=== PATIENT | male | born 1945 | race Caucasian/White ===

== ENCOUNTER 2019-12-24 19:35 | Inpatient (IN) | payer OTHER ==
[~2019-12-24] VITALS: Ht 167.6 cm; Wt 78.9 kg
--- NOTE | 2019-12-24 19:50 | NUR ---
TELE/RN NEW ADMISSION NOTES RECEIVED PATIENT DIRECT ADMIT FROM [facility], ON A GURNEY ACCOMPANIED BY 2 EMT, PATIENT IS AN ELDERLY SPANISH MALE WHO IS ALERT, ORIENTED X3, ABLE TO AMBULATE WITH SUPERVISION, DENIES PAIN ALTHOUGH HE HAD SOME PRESSURE FELT MINIMAL NOW REPORTED AT 06/07. PATIENT PREFERS TO SPEAK IN TAGALOG WITH INVOLVED FAMILY, ATTENDING MD IS CHERISE DAO. HOME MEDICATIONS REPORTED AND RECONCILED, BELONGINGS CHECK, ROOM ORIENTATION PROVIDED, WILL MONITOR, ON TELE SR WITH IST DEGREE BLOCK, TROPONIN LEVEL PENDING. MD DAO DX WITH ACUTE HYPOXIC RESPIRATORY FAILURE AND CHF EXACERBATION, ON ROOM AIR. BED LOCKED, CALL LIGHTS WITHIN REACH. WILL MONITOR.IV SITE ON LEFT AC.
[2019-12-24 20:00] VITALS: BP 140/78
[2019-12-24 20:21] VITALS: BP 140/87
[2019-12-24] MEDS ORDERED: ALBUTEROL 17GM INHALER IH PRN (20:30)
--- NOTE | 2019-12-24 20:33 | NUR ---
REPORTED TROPONIN LEVEL TO LESSON INSTRUCTOR MD CHERISE DAO WITH TROPONIN LEVEL OF 0.742 PER MD TO TREND.
[2019-12-24] MEDS ORDERED: ONDANSETRON HCL/PF 4 MG/2 ML VIAL IVP PRN (21:00)
[2019-12-24] MEDS ORDERED: ACETAMINOPHEN 325 MG TABLET PO PRN (21:00)
[2019-12-24] MEDS ORDERED: Z GUARD REMEDY 2 OZ OINT TP PRN (21:00)
[2019-12-24] MEDS ORDERED: FUROSEMIDE 20 MG/2 ML VIAL IV SCH (21:00)
[2019-12-24] MEDS ORDERED: HYDROCODONE/APAP 5/325MG 1 EACH TABLET PO PRN (21:00)
[2019-12-24] MEDS ORDERED: MORPHINE SULFATE INJ 2 MG/ML DISP.SYRIN IV PRN (21:00)
[2019-12-24] MEDS ORDERED: CEFTRIAXONE 1 G VIAL IM SCH (21:00)
[2019-12-24] MEDS ORDERED: MAGNESIUM HYDROXIDE 30 ML UDC PO PRN (21:00)
[2019-12-24] MEDS ORDERED: MAG HYDROX/AL HYDROX/SIMETH 30 ML UDC PO PRN (21:00)
[2019-12-24] MEDS ORDERED: ZOLPIDEM TARTRATE 5 MG TABLET PO PRN (21:00)
[2019-12-24] MEDS: CALCIUM CARBONATE 500 MG TAB.CHEW PO SCH (22:55)
[2019-12-24] MEDS: ATORVASTATIN 40 MG TABLET PO SCH (22:55)
[2019-12-24] MEDS: MONTELUKAST SODIUM (10MG) 10 MG TABLET PO SCH (22:55)
[2019-12-25] VITALS: BP 140/98
--- NOTE | 2019-12-25 02:39 | NUR ---
RECEIVED TROPONIN LEVEL LATEST FROM LAB JOHAN WITH RESULT OF 0.627
--- NOTE | 2019-12-25 06:22 | NUR ---
304-1 TELE/RN NOTES PATIENT ABLE TO SLEEP DURING THE NIGHT, ATTENDED ALL NEEDS, MONITORED INTAKE OF FLUIDS, ON OXYGEN VIA NC AT 2 LITER. SAFETY MEASURES PLACED, BED LOCKED, CALL LIGHTS WITHIN REACH, BED ALARM ON AND MONITORED. PATIENT ALERT, ORIENTED AND ABLE TO VERBALIZED NEEDS IN TAGALOG. JESSICA WILL ENDORSE TO AM RN FOR LARISSA. TELE MONITOR READING AT SINUS RHYTM. WILL ENDORSE TO AM RN FOR LARISSA.
[2019-12-25 06:31] LABS: BASOPHILS % (AUTO) 0.2 % (0.0-2.0); HEMATOCRIT 48 % (39-51); HEMOGLOBIN 15.9 g/dL (13.5-17.5); MEAN CORPUSCULAR HGB CONC 33 g/dl (31.0-36.0); MEAN CORPUSCULAR VOLUME 95 fL (80-96); MONOCYTES # (AUTO) 1.2 /CMM (0.1-1.30); NEUTROPHILS # (AUTO) 7.6 /CMM (1.8-8.9); NEUTROPHILS % (AUTO) 77.8 % (43.0-81.0); PLATELET COUNT (AUTO) 160 /CMM (150-450); RED BLOOD CELL COUNT(AUTO) 5.07 MIL/uL (4.5-6.0); WHITE BLOOD COUNT (AUTO) 9.8 K/uL (4.3-11.0)
[2019-12-25 06:44] LABS: ALBUMIN 3.7 g/dL (3.4-5.0); BILIRUBIN,TOTAL 0.7 mg/dL (0.2-1.0); CALCIUM, SERUM 9.2 mg/dL (8.5-10.1); MAGNESIUM 2.1 mg/dL (1.8-2.4); PHOSPHORUS 3.4 mg/dL (2.5-4.9); POTASSIUM 3.9 mmol/L (3.5-5.1); TOTAL PROTEIN, SERUM 7.6 g/dL (6.4-8.2)
--- NOTE | 2019-12-25 07:30 | NUR ---
Tele/RN - Assessment Patient is A/O x 4, states breathing better, currently on oxygen at 2lpm via NC, SpO2 95%, denies chest pain, no apparent distress, tele shows NSR. Saline lock on the LAC and left wrist are both patent and intact with no signs of infiltration. Patient was educated on the importance of limiting his fluid intake to 1.5 liters/day. Skin is intact. Patient is ambulatory with steady gait. Labs reviewed, no critical results, serial troponin slightly elevated. Seen and evaluated by Dr. Flores (Cardio). Plan of care discussed with patient and in agreement.
[2019-12-25] MEDS: PANTOPRAZOLE 40 MG TABLET.DR PO SCH (07:40)
[2019-12-25 08:00] VITALS: BP 114/69
[2019-12-25] MEDS: CHOLECALCIFEROL 1,000 UNIT TABLET (VIT D3) PO SCH (08:21)
[2019-12-25] MEDS: CALCIUM CARBONATE 500 MG TAB.CHEW PO SCH ×2 (08:21→21:10)
[2019-12-25] MEDS: FLUTICASONE/VILANTEROL 1 EACH BLST.W.DEV IH SCH (08:22)
[2019-12-25] MEDS: TICAGRELOR 90 MG TABLET PO SCH ×2 (08:22→16:44)
[2019-12-25] MEDS: FLUTICASONE 110MCG 1 EA INHALER IH SCH ×2 (08:26→16:45)
[2019-12-25 08:36] LABS: ABG BASE EXCESS 1.5 mmol/L; ABG OXYGEN SATURATION 89.6 % (92.0-98.5); ABG PCO2 43.8 mmHg (35.0-45.0); ABG PH 7.402 (7.350-7.450); ABG PO2 59.4 mmHg (75.0-100.0); AaDO2 37.9 mmHg; COHb 0.1 % (0.5-1.5); MetHb 0.5 % (0.0-1.5); O2Hb 89.1 % (94.0-97.0); SITE, ABG Right Radial; VENT MODE, BG ROOM AIR
[2019-12-25] MEDS ORDERED: LORATADINE 10 MG TABLET PO SCH (09:00)
[2019-12-25] MEDS ORDERED: FUROSEMIDE 20 MG/2 ML VIAL IV SCH (09:00)
[2019-12-25] MEDS ORDERED: CARVEDILOL 6.25 MG TABLET PO SCH ×2 (09:00)
[2019-12-25] MEDS ORDERED: CARVEDILOL 12.5 MG TABLET PO SCH ×2 (09:00→17:00)
[2019-12-25] MEDS ORDERED: CEFTRIAXONE 1 G VIAL IV SCH (09:00)
[2019-12-25] MEDS ORDERED: ASPIRIN EC 81 MG TABLET.DR PO SCH (09:00)
[2019-12-25] MEDS ORDERED: LOSARTAN POTASSIUM 50 MG TABLET PO SCH (09:00)
[2019-12-25] MEDS ORDERED: ENOXAPARIN SODIUM 40 MG/0.4 ML DISP.SYRIN SQ SCH (09:00)
[2019-12-25] MEDS: POTASSIUM CHLORIDE 20 MEQ TAB.PRT.SR PO SCH ×3 (09:21→11:24)
[2019-12-25] MEDS ORDERED: ASPI-1169 PO (09:39)
[2019-12-25] MEDS ORDERED: FLUT1BLS IH (09:39)
[2019-12-25] MEDS ORDERED: LOSA50TA39 PO (09:39)
[2019-12-25] MEDS ORDERED: FLUT12AE5 INH (09:39)
[2019-12-25] MEDS ORDERED: ATOR40TA PO (09:39)
[2019-12-25] MEDS ORDERED: CARV6.25 PO (09:39)
[2019-12-25] MEDS ORDERED: MONT10TA22 PO (09:39)
[2019-12-25] MEDS ORDERED: LORA10TA7 PO (09:39)
[2019-12-25] MEDS ORDERED: TICA90TA PO (09:39)
[2019-12-25] MEDS ORDERED: CALC500T52 PO (09:41)
[2019-12-25] MEDS ORDERED: ALBUTEROL FS 2.5 MG/3 ML VIAL.NEB NEB PRN ×2 (10:00)
[2019-12-25] MEDS: ENOXAPARIN SODIUM 40 MG/0.4 ML DISP.SYRIN SQ SCH (10:51)
[2019-12-25] MEDS: FUROSEMIDE 40 MG/4 ML VIAL IV SCH ×4 (11:24→20:10)
--- NOTE | 2019-12-25 14:15 | NUR ---
Tele/RN - Notes (DME Oxygen) Home oxygen evaluation performed on the patient, resting on room air was 87%, with activity on room air was 85%, resting on 2lpm via NC was 96%, with activity on 2lpm via NC was 95%. Will notify .
[2019-12-25] MEDS ORDERED: IV NS 0.9% 250 ML IV ONE (14:49)
[2019-12-25] MEDS ORDERED: IOHEXOL-350 100 ML VIAL IV ONE (14:49)
[2019-12-25] MEDS ORDERED: METOPROLOL TARTRATE INJ 5 MG/5 ML AMPUL IVP STA (15:07)
[2019-12-25] MEDS ORDERED: NITROGLYCERIN 0.4 MG/TAB BOTTLE ONE (15:09)
[2019-12-25] MEDS ORDERED: METOPROLOL TARTRATE INJ 5 MG/5 ML AMPUL ONE (15:09)
[2019-12-25] MEDS: METOPROLOL TARTRATE INJ 5 MG/5 ML AMPUL IVP PRN ×2 (15:13→15:18)
[2019-12-25] MEDS ORDERED: NITROGLYCERIN 0.4 MG/TAB BOTTLE SL PRN (15:30)
--- NOTE | 2019-12-25 18:11 | NUR ---
Tele/RN - End of shift summary Patient states feeling better, SR on the monitor, denies SOB, no c/o chest pain, was given Lasix 40 mg IVP x 3 doses, diuresing well, total urine output was 2550 ml. DC home tomorrow if stable overnight. Will continue with current medical management.
--- NOTE | 2019-12-25 19:30 | NUR ---
HANDMADE TILE ARTIST NOTES RECEIVED ON BED A/O X4,BREATHING REGULAR,NOT IN ANY FORM OF DISTRESS,O2 IN USED AT 2L/NC,SR-60 ON TELE MONITOR,FLUID RESTRICTION EMPHASIZED DUE TO CHF EXACERBATION.DENIES DISCOMFORTS AT THE MOMENT,CALL LIGHT IN REACH,NEEDS ANTICIPATED.
[2019-12-25 20:00] VITALS: BP 99/65
--- NOTE | 2019-12-25 20:00 | NUR ---
VINE PRUNER NOTES LASIX 40MG IVP HELD FOR LOW BLOOD PRESSURE OF 99/65,PULSE-60.CHARGE NURSE AWARE.PATIENT SAY HE'S BEEN GOING TO THE TOILET TO PEE ON THE URINAL,WITH TOTAL URINE OUTPUT ON DAYSHIFT 2550ML.ENCOURAGED PATIENT TO ASK FOR ASSISTANCE WHENEVER HE WANT TO GET UP AND GET OUT OF BED FOR SAFETY.
--- NOTE | 2019-12-25 20:00 | NUR ---
WATER WELL DRILLER NOTES LASIX 40MG IV WASTED.
[2019-12-25] MEDS: ATORVASTATIN 40 MG TABLET PO SCH (21:10)
[2019-12-25] MEDS: MONTELUKAST SODIUM (10MG) 10 MG TABLET PO SCH (21:10)
[2019-12-25] MEDS ORDERED: FLUTICASONE 110MCG 1 EA INHALER IH PRN (23:30)
[2019-12-26] VITALS (35 sets, daily range): BP systolic 91–141; BP diastolic 56–91
[2019-12-26 06:30] LABS: BASOPHILS # (AUTO) 0.1 /CMM (0.0-0.2); BASOPHILS % (AUTO) 0.8 % (0.0-2.0); HEMATOCRIT 49 % (39-51); HEMOGLOBIN 16.3 g/dL (13.5-17.5); LYMPHOCYTES # (AUTO) 1.1 /CMM (0.8-4.8); LYMPHOCYTES % (AUTO) 15.3 % (20.0-44.0); MEAN CORPUSCULAR HGB CONC 33 g/dl (31.0-36.0); MEAN CORPUSCULAR VOLUME 96 fL (80-96); MONOCYTES # (AUTO) 1.2 /CMM (0.1-1.30); MONOCYTES % (AUTO) 16.6 % (2.0-12.0); NEUTROPHILS # (AUTO) 4.6 /CMM (1.8-8.9); NEUTROPHILS % (AUTO) 65.3 % (43.0-81.0); PLATELET COUNT (AUTO) 156 /CMM (150-450); RED BLOOD CELL COUNT(AUTO) 5.16 MIL/uL (4.5-6.0)
[2019-12-26 06:32] LABS: ALBUMIN 3.6 g/dL (3.4-5.0); BILIRUBIN,TOTAL 0.7 mg/dL (0.2-1.0); CALCIUM, SERUM 9.2 mg/dL (8.5-10.1); CREATININE 1.2 mg/dL (0.6-1.3); MAGNESIUM 2.2 mg/dL (1.8-2.4); PHOSPHORUS 3.8 mg/dL (2.5-4.9); POTASSIUM 4.3 mmol/L (3.5-5.1); TOTAL PROTEIN, SERUM 7.5 g/dL (6.4-8.2)
--- NOTE | 2019-12-26 06:36 | NUR ---
COMMERCIAL ENGINEER NOTES ON BED A/O X4,SLEPT WITH INTERVALS.NO EPISODE OF SOB NOTED.DENIES CHEST PAIN,VOIDED FREELY PER URINAL AND RECORDED.ALL DUE MEDS ADMINISTERED.CALL LIGHT IN REACH,NEEDS ATTENDED.
--- NOTE | 2019-12-26 06:50 | NUR ---
SPUD DRILLER NOTES REPORTED BY WEB MARKETING INTERN JERMAIN,TROPONIN THIS MORNING 0.662,HOSPITALIST CHERISE CORNEJO MADE AWARE.
[2019-12-26] MEDS: PANTOPRAZOLE 40 MG TABLET.DR PO SCH (07:43)
--- NOTE | 2019-12-26 07:45 | NUR ---
Tele/RN - Assessment Patient is awake, A/O x 4, no complaints overnight, on oxygen at 2lpm via NC, denies chest pain, no apparent distress, tele shows NSR. Saline lock on the LAC and left wrist are both patent and intact with no signs of infiltration. Patient compliant with fluid restriction of 1.5 liters/day. Labs reviewed, slightly increased in troponin 0.662, hospitalist aware. Patient updated on plan of care. Will continue with current medical management.
[2019-12-26] MEDS: CALCIUM CARBONATE 500 MG TAB.CHEW PO SCH ×2 (08:05→20:23)
[2019-12-26] MEDS: LORATADINE 10 MG TABLET PO SCH (08:06)
[2019-12-26] MEDS: ASPIRIN 81 MG TAB.CHEW PO SCH (08:06)
[2019-12-26] MEDS: LOSARTAN POTASSIUM 50 MG TABLET PO SCH (08:06)
[2019-12-26] MEDS: MONTELUKAST SODIUM (10MG) 10 MG TABLET PO SCH (08:06)
[2019-12-26] MEDS: CHOLECALCIFEROL 1,000 UNIT TABLET (VIT D3) PO SCH (08:09)
[2019-12-26] MEDS: CARVEDILOL 6.25 MG TABLET PO SCH ×2 (08:09→17:09)
[2019-12-26] MEDS: CALCIUM CARBONATE (1250) 500 MG TABLET PO SCH ×2 (08:09→17:09)
[2019-12-26] MEDS: ENOXAPARIN SODIUM 40 MG/0.4 ML DISP.SYRIN SQ SCH (08:09)
[2019-12-26] MEDS: FLUTICASONE 110MCG 1 EA INHALER IH SCH (08:11)
[2019-12-26] MEDS: FLUTICASONE/VILANTEROL 1 EACH BLST.W.DEV IH SCH (08:11)
[2019-12-26] MEDS ORDERED: CEFTRIAXONE 1 G in IV D5W 50 ML IV SCH (09:00)
[2019-12-26] MEDS ORDERED: TICAGRELOR 90 MG TABLET PO SCH (09:00)
[2019-12-26] MEDS: FUROSEMIDE 40 MG TABLET PO SCH (09:17)
--- NOTE | 2019-12-26 09:30 | NUR ---
Tele/RN - Consent Patient signed consent for heart catheterization and is aware of the benefits, risk and consequences involved as explained by MD. Patient placed on NPO. Procedure scheduled at 14:00 under the care of Dr. Hernandez. Family made aware.
--- NOTE | 2019-12-26 11:00 | NUR ---
MS/RN - Notes DC telemetry and transfer to med-surg with same orders.
[2019-12-26] MEDS ORDERED: IV NS 0.9% 1,000 ML ONE (11:26)
[2019-12-26] MEDS ORDERED: IODIXANOL 150 ML IV ONE (11:28)
[2019-12-26] MEDS ORDERED: NITROGLYCERIN ICAR 1,000 MCG/10 ML VIAL ICAR ONE (11:29)
[2019-12-26] MEDS ORDERED: LIDOCAINE HCL/PF 1% 30 ML SDV ONE (11:29)
[2019-12-26] MEDS ORDERED: VERAPAMIL HCL IV 5 MG/2 ML VIAL ONE (11:29)
--- NOTE | 2019-12-26 13:18 | NUR ---
MS/RN - Notes Patient was taken to laborer for heart catheterization in no acute distress. Saline lock on the LAC and left hand are both patent and intact with no complications. Endorsed accordingly.
[2019-12-26] MEDS ORDERED: HEPARIN SODIUM, PORCINE 1,000 UNIT/ML VIAL ONE (13:37)
--- NOTE | 2019-12-26 14:30 | NUR ---
received pt from oven laborer, a/o x4, follows commands, SR, on 2L 02 sat well, right arm TR band, hand is warm no tingling or numbness verbalized, pulses are palpable, uses urinal, v/s stable, no pain.
--- NOTE | 2019-12-26 16:04 | NUR ---
M/S RN - Notes Patient's belongings sent to ICU 261, report given to LORA Victoria.
--- NOTE | 2019-12-26 16:28 | NUR ---
pt is resting in the bed, a/o x4, SR, on 2L 02 sat well, TR band off, no bleeding, good sensation and palpable pulses, good urine output, seen by dr Ayala for CABG, v/s stable, no pain, pt cleaned and changed.
--- NOTE | 2019-12-26 19:15 | NUR ---
WAITER/WAITRESS ECONOMY CLASS NOTE RECEIVED PATIENT IN BED RESTING WITH HOB ELEVATED, WATCHING TV. PATIENT IS A&O X4, ABLE TO MAKE NEEDS KNOWN. BREATHING IS EVEN AND NON LABORED, NO SOB NOTED. ON O2 2L VIA NC. NO COMPLAINTS OF PAIN AT THIS TIME. IV SITES ON LEFT WRIST GAUGE 18 AND LAC GAUGE 20 ARE CLEAN, DRY, AND PATENT. PATIENT IS CONTINENT OF BOWEL AND BLADDER. URINAL AT BEDSIDE. CALL LIGHT IS WITHIN EASY REACH. IN NO APPARENT DISTRESS NOTED AT THIS TIME. WILL CONTINUE TO MONITOR.
[2019-12-26] MEDS: ATORVASTATIN 40 MG TABLET PO SCH ×3 (20:23→21:18)
[2019-12-26] MEDS: ENOXAPARIN SODIUM 80 MG/0.8 ML DISP.SYRIN SQ SCH (20:24)
[2019-12-27] VITALS (60 sets, daily range): BP systolic 54–147; BP diastolic 24–102
--- NOTE | 2019-12-27 01:05 | NUR ---
MAIL TELLER NOTE PATIENT IS SLEEPING COMFORTABLY AT THIS TIME, AUDIBLE SNORING HEARD. IN NO APPARENT DISTRESS. WILL CONTINUE TO MONITOR.
[2019-12-27 04:12] LABS: BASOPHILS % (AUTO) 0.6 % (0.0-2.0); EOSINOPHILS % (AUTO) 5.3 % (0.0-6.0); HEMATOCRIT 49 % (39-51); HEMOGLOBIN 16.2 g/dL (13.5-17.5); LYMPHOCYTES # (AUTO) 0.9 /CMM (0.8-4.8); LYMPHOCYTES % (AUTO) 11.7 % (20.0-44.0); MEAN CORPUSCULAR HGB CONC 33 g/dl (31.0-36.0); MEAN CORPUSCULAR VOLUME 96 fL (80-96); MONOCYTES % (AUTO) 14.1 % (2.0-12.0); NEUTROPHILS % (AUTO) 68.3 % (43.0-81.0); PLATELET COUNT (AUTO) 156 /CMM (150-450); RED BLOOD CELL COUNT(AUTO) 5.08 MIL/uL (4.5-6.0); WHITE BLOOD COUNT (AUTO) 7.4 K/uL (4.3-11.0)
[2019-12-27 04:18] LABS: CALCIUM, SERUM 9.7 mg/dL (8.5-10.1); CREATININE 1.2 mg/dL (0.6-1.3); MAGNESIUM 2.1 mg/dL (1.8-2.4); PHOSPHORUS 4.4 mg/dL (2.5-4.9); POTASSIUM 4.3 mmol/L (3.5-5.1)
--- NOTE | 2019-12-27 06:34 | NUR ---
ETHYLBENZENE CONVERTER OPERATOR NOTE PATIENT REMAINED STABLE THROUGHOUT THE NIGHT, SLEPT WELL. ALL DUE MEDS GIVEN AND TOLERATED WELL. ALL NEEDS ATTENDED AND MET. NO COMPLAINTS OF ANY PAIN. PATIENT IS KEPT CLEAN, DRY, AND COMFORTABLE. WILL ENDORSE TO AM SHIFT RN FOR CONTINUATION OF CARE.
[2019-12-27] MEDS: CHOLECALCIFEROL 1,000 UNIT TABLET (VIT D3) PO SCH (08:07)
[2019-12-27] MEDS: ASPIRIN 81 MG TAB.CHEW PO SCH (08:07)
[2019-12-27] MEDS: LOSARTAN POTASSIUM 50 MG TABLET PO SCH (08:09)
[2019-12-27] MEDS: CALCIUM CARBONATE (1250) 500 MG TABLET PO SCH ×2 (08:09→16:02)
[2019-12-27] MEDS: FUROSEMIDE 40 MG TABLET PO SCH (08:09)
[2019-12-27] MEDS: CARVEDILOL 6.25 MG TABLET PO SCH ×2 (08:10→16:02)
[2019-12-27] MEDS: MONTELUKAST SODIUM (10MG) 10 MG TABLET PO SCH (08:10)
[2019-12-27] MEDS: PANTOPRAZOLE 40 MG TABLET.DR PO SCH (08:10)
[2019-12-27] MEDS: LORATADINE 10 MG TABLET PO SCH (08:10)
[2019-12-27] MEDS: ENOXAPARIN SODIUM 80 MG/0.8 ML DISP.SYRIN SQ SCH (08:11)
[2019-12-27] MEDS: FLUTICASONE/VILANTEROL 1 EACH BLST.W.DEV IH SCH (08:15)
[2019-12-27] MEDS: CALCIUM CARBONATE 500 MG TAB.CHEW PO SCH (08:15)
--- NOTE | 2019-12-27 08:23 | NUR ---
received pt from math specialist, a/o x4, follows commands, SR, on 2L 02 sat well, lungs clear/diminished, no edema, tolerates diet, good urine output, walks to the bathroom, v/s stable, no pain, awaits for the transfer to different hospital fo CABG, seen by Dr Ayala.
[2019-12-27] MEDS ORDERED: ENOX80DI SQ (13:54)
[2019-12-27] MEDS ORDERED: FURO40TA5 PO (13:54)
--- NOTE | 2019-12-27 16:12 | NUR ---
pt is resting in the bed, a/o x4, SR, on 2L 02 sat well, v/s stable, no pain, patient cleaned and changed, ambulance molded goods spot picker at 1700 to transfer to [facility]. Called for report to [facility], report given to Yusef for room 3208.
--- NOTE | 2019-12-27 17:21 | NUR ---
DEBBIE CLOSING NOTES PT GOT PICKED UP BY AMBULANCE TO GO TO [facility] FOR FURTHER TREATMENT. PT VS WNL. PT IS IN STABLE CONDITION TO BE TRANSFERRED WITH SAFETY MEASUREMENTS . PT'S BELONGING WAS GIVEN AND ALL INSTRUCTIONS WITH DC PAPERS WERE SIGNED AND PROVIDED TO THERAPEUTIC CASE MANAGER CREW.
== END 2019-12-27 17:20 | disposition short-term general hospital (02) | DRG 280 ==
LOC: TELE 19:35 → MED 12-26 11:14 → ICU 12-26 14:52
PROVIDERS: ADMIT Nurse Practitioner Acute Care; ATTEND Nurse Practitioner Acute Care
PROC: 4A023N7 Measurement of Cardiac Sampling and Pressure, Left Heart, Percutaneous Approach (ICD-10-PCS; principal; 2019-12-26)
PROC: B211YZZ Fluoroscopy of Multiple Coronary Arteries using Other Contrast (ICD-10-PCS; principal; 2019-12-26)
DX: I25.10 Atherosclerotic heart disease of native coronary artery without angina pectoris (principal); I21.4 Non-ST elevation (NSTEMI) myocardial infarction; J96.01 Acute respiratory failure with hypoxia; I50.43 Acute on chronic combined systolic (congestive) and diastolic (congestive) heart failure; J15.9 Unspecified bacterial pneumonia; J45.901 Unspecified asthma with (acute) exacerbation; N17.9 Acute kidney failure, unspecified; I11.0 Hypertensive heart disease with heart failure; E78.5 Hyperlipidemia, unspecified; D64.9 Anemia, unspecified; I25.2 Old myocardial infarction; Z98.61 Coronary angioplasty status; I25.5 Ischemic cardiomyopathy
CPT/HCPCS: 36415; 36600; 71045-TC; 75574; 80048-TC; 80053-TC; 80061-TC; 83735-TC; 83880; 84100-TC; 84484-TC; 85025-TC; 85610-TC; 85730-TC; 87081-TC; 93307-TC; 93880-TC; C1887; G0378; G0500; J0696; J1644; J1650; J1940; J3490; J7050; J7060; Q9967